=== PATIENT | male | born 1980 | race Caucasian/White ===

== ENCOUNTER 2020-05-10 13:05 | Emergency (ER) | payer MEDICAID ==
[~2020-05-10] VITALS: Ht 172.7 cm; Wt 83.9 kg
[2020-05-10 13:10] VITALS: BP_SYST 145
[2020-05-10] MEDS: NS 500 ML IV ONE (13:30)
[2020-05-10 13:52] LABS: BASOPHILS # (AUTO) 0.1 K/uL (0.0-0.2); BASOPHILS % (AUTO) 2.5 % (0.0-2.0); EOSINOPHILS % (AUTO) 0.4 % (0.0-4.0); HEMATOCRIT 28.1 % (36-54); HEMOGLOBIN 9.2 g/dL (14.0-18.0); LYMPHOCYTES # (AUTO) 0.6 K/uL (1.0-5.5); LYMPHOCYTES % (AUTO) 10.9 % (20.5-51.5); MEAN CORPUSCULAR HEMOGLOBIN 30 pg (27-31); MEAN CORPUSCULAR HGB CONC 33 % (32-36); MEAN CORPUSCULAR VOLUME 91 fL (79.0-98.0); MONOCYTES # (AUTO) 0.6 K/uL (0.0-1.0); MONOCYTES % (AUTO) 10.9 % (1.7-9.3); NEUTROPHILS # (AUTO) 4.2 K/uL (1.8-7.7); NEUTROPHILS % (AUTO) 75.3 % (40.0-70.0); PLATELET COUNT (AUTO) 163 K/uL (130-430); RED CELL DISTRIBUTION WIDTH 16.7 % (9.0-15.0); WHITE BLOOD COUNT (AUTO) 5.6 K/uL (4.8-10.8)
[2020-05-10 14:02] LABS: ANION GAP 21 (5-15); CHLORIDE 93 mmol/L (98-107); GLUCOSE 124 mg/dL (70-99); POTASSIUM 3.6 mmol/L (3.5-5.1); SODIUM SERUM 129 mmol/L (136-145); UREA NITROGEN, BLOOD 6 mg/dL (8-21)
[2020-05-10 14:04] LABS: GFR AFRICAN AMERICAN 96 mL/min (>90)
[2020-05-10 14:08] LABS: ALANINE AMINOTRANSFERASE 84 U/L (12-78); ALBUMIN 3.9 g/dL (3.4-4.8); ALCOHOL, BLOOD 7 mg/dL (<10); ASPARTATE AMINOTRANSFERASE 208 U/L (10-37); TOTAL BILIRUBIN 0.4 mg/dL (0.0-1.0)
[2020-05-10 14:13] LABS: ACETAMINOPHEN < 1 ug/mL (1-30)
[2020-05-10] MEDS: LORazepam 2 MG/ML VIAL IVP ONE (14:25)
[2020-05-10] MEDS ORDERED: LORazepam 2 MG/ML VIAL ONE (14:45)
[2020-05-10] MEDS: levETIRAcetam 1,000 MG IV BAG 100 ML IV ONE (15:36)
[2020-05-10 16:20] VITALS: BP_SYST 140
[2020-05-10 16:20] LABS: BARBITURATE, URINE NEGATIVE (NEG <=200); BENZODIAZEPINE, URINE NEGATIVE (NEG <=150); CANNABINOID, URINE NEGATIVE (NEG <=50); COCAINE, URINE NEGATIVE (NEG <=150); METHAMPHETAMINES SCREEN,URINE NEGATIVE (NEG <=500); OPIATE, URINE NEGATIVE (NEG <=100); PHENCYCLIDINE SCREEN,URINE NEGATIVE (NEG <=25); UR TRICYCLIC ANTIDEPRESSANTS NEGATIVE (NEG <=300); URINE AMPHETAMINE NEGATIVE (NEG <=500); URINE METHADONE NEGATIVE (NEG <=200); URINE OXYCODONE SCREEN NEGATIVE (NEG <=100); URINE PROPOXYPHENE SCREEN NEGATIVE (NEG <=300)
== END 2020-05-10 16:15 | disposition home or self-care (01) ==
LOC: SED 13:05
DX: R56.9 Unspecified convulsions (principal); R41.0 Disorientation, unspecified
CPT/HCPCS: 36415; 70450; 71045; 72125; 80053; 80307; 85025; 93005; 96361; 96365; 96375; 99285; G0480; G0481; G0482; J1953; J2060; J7030